=== PATIENT | male | born 1970 | race Caucasian/White ===

== ENCOUNTER → 2017-09-25 13:18 | Outpatient (CLI) | payer SELFPAY ==
--- NOTE | 2017-09-25 13:28 | MRI_ITS ---
STUDY: MRI LUMBAR SPINE WITHOUT CONTRAST REASON FOR EXAM: Male, 47 years old. lumbar sprain, lbp, rt hip pain,. TECHNIQUE: Standardized fat and water weighted pulse sequences were obtained in the sagittal and axial planes. COMPARISON: None FINDINGS: T12-L1: There is a mild space narrowing and anterior spondylosis. There is no significant central canal or foraminal stenosis. Normal lumbar lordosis. There is no substantial scoliosis. Normal conus medullaris that terminates at the L1 L1-2: There is a mild space narrowing and anterior spondylosis. There is no significant central canal or foraminal stenosis. L2-3: There is moderate disc space narrowing and endplate spondylosis. There is a mild disc bulge and facet arthropathy with mild central canal and mild bilateral foraminal stenosis. L3-4: There is moderate disc space narrowing and endplate spondylosis. There is a mild disc bulge and facet arthropathy with mild central canal and mild bilateral foraminal stenosis. L4-5: There is minimal disc space narrowing and endplate sclerosis. There is a mild disc bulge asymmetric to the right with moderate right foraminal stenosis. There is facet arthropathy without significant central canal stenosis. There is moderate right and mild left foraminal stenosis. L5-S1: Normal endplates. Normal disc height, hydration and morphology. Normal bilateral facet joints. Normal central canal and bilateral lateral recesses. Normal bilateral intervertebral neural foramina. Normal visualized sacral ala. Normal visualized paraspinous soft tissue structures. MRI/Spine Lumbar (Routine) IMPRESSION: L4/L5: Moderate right foraminal stenosis. Electronically Signed: Ki Georges MD at 10:53 EDT Tel , Service support ,
== END ==
PROVIDERS: Family Provider Internal Medicine; PCP Internal Medicine
DX: S33.8XXA Sprain of other parts of lumbar spine and pelvis, initial encounter (principal); X58.XXXA Exposure to other specified factors, initial encounter
CPT/HCPCS: 72148

== ENCOUNTER 2021-05-21 22:33 | Emergency (ER) | payer BC, SELFPAY ==
[2021-05-21 22:34] VITALS: BP 153/80; PULSE 95; RESP 20; TEMP 39; O2SAT 94; BMI 27.9
--- NOTE | 2021-05-21 23:15 | RAD_ITS ---
INDICATION: cough, ?Covid EXAMINATION/TECHNIQUE: X-RAY - XR Chest 1 View COMPARISON: None. FINDINGS: LINES/DEVICES: None. LUNGS: Bilateral, multifocal airspace disease involving central and peripheral lung, predominantly in the lower lobes. No associated pleural effusion. Symmetric, normal lung volumes. No pneumothorax. No nodule or mass. MEDIASTINUM AND CARDIOVASCULAR STRUCTURES: Normal size and contour of the cardiomediastinal silhouette. No evidence of pulmonary vascular congestion. BONES AND SOFT TISSUES: No abnormality within limits of the exam. RAD/Chest 1 View IMPRESSION: 1. Multifocal pneumonia as could be seen with Covid pneumonia. Electronically Signed: Luis Alberto Cowart DO at 23:57 EST Tel , Service support ,
[2021-05-21] MEDS: Ondansetron ODT 4 MG Tablet PO (23:23)
[2021-05-21] MEDS: Acetaminophen 500 MG Tablet 1000 MG PO (23:23)
[2021-05-21 23:24] VITALS: O2SAT 94
[2021-05-22 00:31] VITALS: BP 153/80; PULSE 95; RESP 20; TEMP 39; O2SAT 94
[2021-05-22 00:34] VITALS: RESP 16
--- NOTE | 2021-05-22 01:03 | EDS_ITS ---
HPI History of Present Illness Chief Complaint: Fever Informant: patient Narrative Narrative: Patient presents with concern for Covid. He states that Hakeem a week ago so about 10 days ago he started with nasal congestion. He is lost taste and smell. He has a cough but he does not feel short of breath. He definitely has a lot of myalgias. His biggest complaint is just no energy at all. He is able to eat and drink but he might of had slight nausea once or twice. He had some dry heaves but that seemed to be more after coughing. He has not had diarrhea. No hemoptysis. No chest pain. He has not had vaccines. He was at a family gathering and person that was there evidently does have Covid so he has a likely exposure. Nothing really makes his symptoms better or worse but he has not really tried much therapy. Past medical history: High blood pressure Medications losartan Allergy: Azithromycin Surgery: Inguinal hernia Lives with family, [facility]-smoker [facility] History no medical history Home Medications ondansetron 4 mg PO Q8H PRN #10 tab 05/22/21 [Rx Last Taken Unknown] Allergy/AdvReac Type Severity Reaction Status Date / Time azithromycin [From Zithromax] AdvReac Other Verified 05/21/21 22:38 Social History Smoking Status: Never smoker ROS ROS ED Constitutional Constitutional ED: Reports chills, fever(s) and subjective Eyes Eyes: Denies blurry vision ENT ENT ED: Reports rhinorrhea and sore throat; Denies ear pain Cardiovascular Cardiovascular: Denies chest pain Respiratory/Chest Respiratory/Chest: Reports cough; Denies dyspnea or sputum Gastrointestinal Gastrointestinal: Reports nausea; Denies abdominal pain, diarrhea or vomiting Genitourinary Genitourinary ED: Denies dysuria Musculoskeletal Musculoskeletal: Reports arthralgias and myalgias Integumentary Denies rash Neurologic Neurologic: Denies headache(s), paresthesias or weakness Endocrine Endocrinology: Denies polyuria Allergic/Immunologic Allergic/Immunologic ED: Denies mouth swelling or urticaria EXAM Physical Exam Const Vital Signs: 05/21/21 22:34 05/21/21 23:04 05/22/21 00:31 Temperature 102.2 F H 102.2 F H Temperature Source Temporal Temporal Pulse Rate 95 95 Respiratory Rate 20 H 20 H Respiratory Effort Short of Breath Respiratory Pattern Tachypnea Blood Pressure 153/80 H 153/80 H Blood Pressure Mean 104 104 Pulse Ox 94 94 Oxygen Delivery Method Room Air Room Air 05/22/21 00:34 Temperature Temperature Source Pulse Rate Respiratory Rate 16 Respiratory Effort Respiratory Pattern Blood Pressure Blood Pressure Mean Pulse Ox Oxygen Delivery Method Positive well nourished and well developed General Appearance ED: well developed and NAD; Negative for cyanotic or diaphoretic HEENT Reports moist mucous membranes Negative for trauma Eyes General Eye ED: Negative for pale conjunctiva or scleral icterus Neck supple and no JVD Chest Wall inspection of chest normal Resp normal respiratory effort and No clear to auscultation bilaterally Effort and Inspection: Negative for pain with movement Auscultation: rhonchi; Negative for rales or wheezes Cardio regular rate, regular rhythm and no murmurs GI normal to inspection, nondistended, normoactive bowel sounds and non-tender Palpation: soft Back/Spine no CVA tenderness Extremity normal to inspection General Extremety ED: Negative for edema or tenderness General Extremity: Negative for edema Neuro Sensorium / Orientation: alert; Negative for orientation impaired Skin no rashes or lesions noted MDM MDM MDM Narrative Medical decision making narrative: Patient's Covid test is positive. His x-ray does show multifocal pneumonia consistent with Covid. We walked the patient. His lowest O2 saturation on room air was 92%. He was given Zofran and Tylenol. That does help somewhat. Patient is already on day 10 of symptoms. He is really not a candidate for mono clonal therapy. We will write him for some Zofran. We have encouraged Tylenol. If he develops dyspnea he should return. If he can get an O2 sat device he should keep an eye on this at home. Radiography Diagnostic Testing: Clinical Impression(s) from Imaging Studies Chest X-Ray 05/21/21 23:15 IMPRESSION: 1. Multifocal pneumonia as could be seen with Covid pneumonia. Electronically Signed: Luis Alberto Cowart DO at 23:57 EST Tel , Service support , Discharge Plan Triage Chief Complaint: Fever ED Provider: Xavier Tyler Dx/Rx/DC Orders Clinical Impression: Pneumonia due to 2019 novel coronavirus, Nausea Instructions: Coronavirus Disease 2019 (COVID-19): Caring for Yourself or Others Prescriptions: New ondansetron 4 mg tablet,disintegrating 4 mg PO Q8H PRN (Reason: nausea and vomiting) Qty: 10 RF: 0 Primary Care Provider: Brooke Flanagan Referrals: Brooke Flanagan MD [Primary Care Provider] - 3-5 Days Disposition Disposition: Home, Self Care
== END 2021-05-22 01:22 | disposition home or self-care (01) ==
PROVIDERS: Emergency Provider Emergency Medicine; PCP Internal Medicine
DX: U07.1 COVID-19 (principal); J12.82 Pneumonia due to coronavirus disease 2019
CPT/HCPCS: 71045; 87426; 99282; A4216